=== PATIENT | female | born 1950 | race Hispanic/Latino ===

== ENCOUNTER 2021-09-08 21:16 | Emergency (ER) | payer MEDICARE ==
[~2021-09-08 21:16] MED LIST: 0.9%NACL 1000ML 1,000 ML IV ONE
[2021-09-08] MEDS ORDERED: METOCLOPRAMIDE 10 MG/2 ML VIAL IVP ONE (23:00)
[2021-09-08] MEDS ORDERED: FAMOTIDINE 20MG VIAL IV ONE (23:00)
[2021-09-08] MEDS ORDERED: ONDANSETRON 4MG INJ IVP ONE (23:00)
[2021-09-08 23:09] LABS: BASOPHILS % (AUTO) 1.2 % (0.0-5.0); EOSINOPHILS % (AUTO) 3.6 % (0.0-8.0); HEMATOCRIT 42.7 % (42-54); LYMPHOCYTES % (AUTO) 33.2 % (21.0-51.0); MEAN CORPUSCULAR HGB CONC 31.4 g/dL (32.0-36.0); MEAN CORPUSCULAR VOLUME 86.1 fL (79-99); MONOCYTES % (AUTO) 9.7 % (3.0-13.0); NEUTROPHILS % (AUTO) 51.9 % (40.0-77.0); PLATELET COUNT (AUTO) 174 K/uL (130-400); RED BLOOD CELL COUNT(AUTO) 4.96 MIL/uL (4.50-6.20); RED CELL DISTRIBUTION WIDTH 13.9 % (11.0-15.5); WHITE BLOOD COUNT (AUTO) 9.5 K/uL (4.8-10.8)
[2021-09-08 23:19] LABS: POTASSIUM 4.8 mmol/L (3.5-5.1)
[2021-09-08 23:23] LABS: ALBUMIN 3.3 g/dL (3.5-5.0); BILIRUBIN,TOTAL 0.6 mg/dL (0.2-1.0); TOTAL PROTEIN, SERUM 7.7 g/dL (6.0-8.3)
[2021-09-08 23:24] LABS: APPEARANCE,URINE Clear (CLEAR); BILIRUBIN,URINE Negative (NEGATIVE); COLOR,URINE Yellow (YELLOW); GLUCOSE, URINE (UA) Negative (NEGATIVE); KETONES,URINE Negative (NEGATIVE); LEUKOCYTE ESTERASE ,URINE Negative (NEGATIVE); NITRATE,URINE Positive (NEGATIVE); OCCULT BLOOD,URINE Negative (NEGATIVE); PROTEIN,URINE Trace mg/dL (NEGATIVE)
[2021-09-08 23:31] LABS: B-TYPE NATRIURETIC PEPTIDE 120 pg/mL (0-100)
[2021-09-08 23:46] LABS: BACTERIA,URINE Many /HPF (None Seen); RBC,URINE None Seen /HPF (0-1); SQUAMOUS EPITHELIAL CELL,UR Rare /HPF (0-2); WBC,URINE 0-1 /HPF (0-1)
[2021-09-09] MEDS ORDERED: ONDA4TAB10 PO (00:59)
[2021-09-09] MEDS ORDERED: CEPH500B PO (00:59)
[2021-09-09] MEDS ORDERED: CEFTRIAXONE 1G VIAL IVP ONE (01:00)
[2021-09-09] MEDS ORDERED: 0.9%NACL 1000ML 1,000 ML IV ONE (01:00)
[2021-09-09 01:42] VITALS: BP 146/69
== END 2021-09-09 01:35 | disposition home or self-care (01) ==
LOC: EDH 21:16 → EDSEX 21:16 → EDH 09-09 01:35
DX: N39.0 Urinary tract infection, site not specified (principal); E86.9 Volume depletion, unspecified; R11.10 Vomiting, unspecified; E78.00 Pure hypercholesterolemia, unspecified; I10 Essential (primary) hypertension
CPT/HCPCS: 36415; 70450; 71045; 80053; 81001; 83690; 83880; 84484; 85025; 87077; 87088; 87186; 93005; 96361; 96374; 96375 ×2; 99285; J0696; J2405; J2765; J3490; J7030